=== PATIENT | female | born 1990 | race Caucasian/White ===

== ENCOUNTER 2021-02-01 13:13 | Emergency (ER) | payer MEDICAID ==
[~2021-02-01] VITALS: Ht 160 cm; Wt 72.6 kg
[2021-02-01 13:28] VITALS: BP 138/89
--- NOTE | 2021-02-01 13:45 | NUR ---
ABRAHAM RICH. OKAY TO RETURN TO LOBBY AWAITING BED IN ED.
--- NOTE | 2021-02-01 14:30 | NUR ---
PATIENT BIB SELF FOR C/O CP X 1 HOUR PRIOR TO ARRIVAL. PATIENT STATES ALSO HAD X 1 EPISODE OF N/V AT WORK. PATIENT STATES, " THIS HAS HAPPENED TO ME BEFORE AND I JUST WANTED TO GET IT CHECKED OUT AGAIN. PATIENT STATES, CHEST PAIN STABBING AND 3/10 PAIN. DENIES JOANN RADIATING, RADIAL PULSES STRONG AND EQUAL BILAT. CAP REFIL <3. S1S2 PRESENT. 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 VSS. MEDHX: DENIES NKA
[2021-02-01] MEDS ORDERED: ONDANSETRON 4 MG ODT PO ONE (14:50)
[2021-02-01] MEDS ORDERED: ONDANSETRON 4 MG ODT ONE (15:58)
--- NOTE | 2021-02-01 16:05 | NUR ---
Patient appears to be resting comfortably in bed. Vital Signs within normal limits. Respirations even and unlabored.
[2021-02-01 16:29] LABS: BASOPHILS % (AUTO) 0.5 % (0.0-2.0); EOSINOPHILS # (AUTO) 0.1 K/uL (0-0.4); EOSINOPHILS % (AUTO) 1.2 % (0.0-4.0); HEMATOCRIT 40.3 % (36-48); HEMOGLOBIN 13.9 g/dL (12.0-16.0); LYMPHOCYTES # (AUTO) 2.3 K/uL (2.5-16.5); LYMPHOCYTES % (AUTO) 34.1 % (20.5-51.1); MEAN CORPUSCULAR HEMOGLOBIN 33 pg (27-31); MEAN CORPUSCULAR HGB CONC 35 g/dL (33-37); MEAN CORPUSCULAR VOLUME 95.9 fL (80-94); MONOCYTES # (AUTO) 0.8 K/uL (0.8-1.0); MONOCYTES % (AUTO) 11.6 % (1.7-9.3); NEUTROPHILS # (AUTO) 3.6 K/uL (1.8-7.7); NEUTROPHILS % (AUTO) 52.6 % (42.2-75.2); PLATELET COUNT (AUTO) 286 K/uL (140-450); RED BLOOD CELL COUNT(AUTO) 4.21 MIL/uL (4.20-5.40); RED CELL DISTRIBUTION WIDTH 12.3 % (11.6-13.7); WHITE BLOOD COUNT (AUTO) 6.8 K/uL (4.8-10.8)
[2021-02-01] MEDS ORDERED: ASPIRIN 81 MG TAB.CHEW PO SCH (16:30)
[2021-02-01] MEDS ORDERED: ASPIRIN 81 MG TAB.CHEW ONE (16:37)
[2021-02-01 16:39] LABS: ALBUMIN 3.7 g/dL (3.4-5.0); ANION GAP 11.8 (8-16); CARBON DIOXIDE 27.1 mmol/L (21-32); CREATININE 0.8 mg/dL (0.6-1.3); POTASSIUM 3.9 mmol/L (3.5-5.1); TOTAL BILIRUBIN 0.4 mg/dL (0.0-1.0)
--- NOTE | 2021-02-01 17:37 | NUR ---
ORDERED EKG TO BE DONE AT 1800
--- NOTE | 2021-02-01 17:48 | NUR ---
PATIENT DENIES C/P AT THIS TIME. PATIENT ALSO DENIES FEELING OF NAUSEA OR FURTHER EPISODES OF VOMITING. 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 VSS.
[2021-02-01 19:00] VITALS: BP 116/68
--- NOTE | 2021-02-01 19:00 | NUR ---
Patient discharged with v/s stable. Written and verbal after care instructions given and explained. Patient verbalized understanding. Ambulatory with steady gait. All questions addressed prior to discharge. Advised to follow up with PMD.
== END 2021-02-01 19:00 | disposition home or self-care (01) ==
LOC: MED 13:13
DX: R07.9 Chest pain, unspecified (principal); R11.2 Nausea with vomiting, unspecified; R06.02 Shortness of breath
CPT/HCPCS: 36415; 71045; 80053; 81002; 81025; 84484; 85025; 93005; 99285; Q0162